=== PATIENT | male | born 1965 | race Caucasian/White ===

== ENCOUNTER 2017-04-11 10:21 | Emergency (ER) | payer OTHER ==
[~2017-04-11] VITALS: Ht 177.8 cm; Wt 81.7 kg
[2017-04-11 10:55] LABS: INFLUENZA A ANTIGEN None Detected (None Detect); INFLUENZA B ANTIGEN None Detected (None Detect)
[2017-04-11] MEDS ORDERED: VENTOLIN HFA 1818 GM INH (11:23)
[2017-04-11] MEDS ORDERED: PREDNISONE 20 M20 MG PO (11:25)
[2017-04-11 11:39] VITALS: BP 144/89
--- NOTE | 2017-04-11 17:29 | EKG ---
[place] [address] ELECTROCARDIOGRAM REPORT Name: NIMO CROFT [id number] Admission: 04/11/17 Attend Phys: Discharge: 04/11/17 Date of : 61 Report #: [id number] THIS REPORT FOR: //name// [facility] ED Test Date: 2017-04-11 Test Time: 10:32:22 Pat Name: NIMO CROFT Department: Room: Gender: Regulatory Compliance Coordinator: Russ FUENTES : 1965 Requested By: Cristino Wellington Order Number: [id number] MD: Marcell Muhammad Measurements Intervals [place] Rate: 77 P: 59 ND: 158 QRS: 17 QRSD: 82 T: 43 QT: 389 QTc: 441 Interpretive Statements Sinus rhythm No previous ECG available for comparison Electronically Signed On 04-11-2017 17:29:01 [employer] by Marcell Muhammad [email or web address] <ELECTRONICALLY SIGNED> By: Marcell Muhammad MD, [facility] 04/11/17 1729 1032 1032 Marcell Muhammad MD, FACC /EPI
== END 2017-04-11 11:40 | disposition home or self-care (01) ==
LOC: M.ERS 10:21
PROVIDERS: Emergency Medicine
DX: J20.9 Acute bronchitis, unspecified (principal)

== ENCOUNTER 2020-02-24 22:53 | Emergency (ER) | payer OTHER ==
[~2020-02-24] VITALS: Ht 177.8 cm; Wt 90.7 kg
[~2020-02-24 22:53] MED LIST: PREDNISONE 20 M20 MG PO; VENTOLIN HFA 1818 GM INH
[2020-02-25 00:01] VITALS: BP 163/87
== END 2020-02-25 00:02 | disposition home or self-care (01) ==
LOC: M.ERS 22:53
DX: S60.221A Contusion of right hand, initial encounter (principal); W22.8XXA Striking against or struck by other objects, initial encounter; Y93.89 Activity, other specified; Y92.89 Other specified places as the place of occurrence of the external cause; Y99.8 Other external cause status